=== PATIENT | female | born 1995 | race Caucasian/White ===

== ENCOUNTER 2019-12-22 16:34 | Inpatient (IN) | payer OTHER ==
[2019-12-22] MEDS ORDERED: RINGERS SOLUTION,LACTATED 1,000 ML IV PRN (17:15)
[2019-12-22] MEDS ORDERED: RINGERS SOLUTION,LACTATED 1,000 ML IV ONE (17:15)
[2019-12-22 17:44] LABS: ABSOLUTE LYMPHOCYTES (AUTO) 1.6 10^3/uL (0.5-4.7); BASOPHILS % (AUTO) 0.1 % (0-2); EOSINOPHILS % (AUTO) 0.4 % (0-6); HEMATOCRIT 33.3 % (36.0-47.0); HEMOGLOBIN 11.2 g/dL (12.0-15.5); LYMPHOCYTES % (AUTO) 14.6 % (13-45); MEAN CORPUSCULAR HEMOGLOBIN 28.1 pg (27.0-33.4); MEAN CORPUSCULAR HGB CONC 33.5 g/dL (32.0-36.0); MEAN CORPUSCULAR VOLUME 84 fl (80-97); MONOCYTES % (AUTO) 9.6 % (3-13); PLATELET COUNT 302 10^3/uL (150-450); RED BLOOD COUNT 3.97 10^6/uL (3.72-5.28); SEGMENTED NEUTROPHILS % (AUTO) 75.3 % (42-78); TOTAL CELLS COUNTED % (AUTO) 100 %; WHITE BLOOD COUNT 10.6 10^3/uL (4.0-10.5)
--- NOTE | 2019-12-22 18:43 | Admission Physical ---
Datetime Report Generated by CPN: 12/22/2019 18:43 CURRENT ADMISSION Chief Complaint: Uterine Contractions Indication for Induction: Not Applicable Admit Impression : Term, Intrauterine Admit Plan: Admit to Unit; Initiate Labor Protocol ALLERGIES Medication Allergies: No Medication Allergies: nickel (12/22/2019) Latex: No Latex Allergies OBSTETRICAL HISTORY EDC: 12/25/2019 00:00 : 1 Para: 0 Term: 0 : 0 SAB: 0 IAB: 0 Ectopic: 0 Livin Cesareans: 0 VBACs: 0 Multiple Births: 0 Gestational Diabetes: No Rh Sensitization: No Incompetent Cervix: No KARSTEN: No Infertility: No ART Treatment: No Uterine Anomaly: No IUGR: No Hx Previous C/S: No Macrosomia: No Hx Loss/Stillborn: No PIH: No Hx : No Placenta Previa/Abruption: No Depression/PP Depression: No PTL/PROM: No Post Hemorrhage: No Current Procedures: Ultrasound; NST Obstetrical History Comments: G1 - Current SEE RECORDS Alcohol: No Marijuana : No Cocaine: No Other Illicit Drugs: No Cigarettes: Never Smoker. [id number] MEDICAL HISTORY Diabetes: No Blood Transfusion: No Pulmonary Disease (Asthma, TB): No Breast Disease: No Hypertension: No Lithostripper Surgery: No Heart Disease: No Hosp/Surgery: No Autoimmune Disorder: No Anesthetic Complications: No Kidney Disease: No Abnormal Pap Smear: No Neuro/Epilepsy: No Psychiatric Disorders: No Other Medical Diseases: No Hepatitis/Liver Disease: No Significant Family History: No Varicosities/Phlebitis: No Trauma/Violence : No Thyroid Dysfunction: No INFECTIOUS HISTORY Gonorrhea: No Genital Herpes: No Chlamydia: No Tuberculosis: No Syphilis: No Hepatitis: No HIV/AIDS Exposure: No Rash or Viral Illness: No HPV: No PHYSICAL EXAM General: Normal HEENT: Normal Neurologic: Normal Thyroid: Normal Heart: Normal Lungs: Normal Breast: Deferred Back: Normal Abdomen: Normal Genitourinary Exam: Normal Extremities: Normal DTRs: Normal Pelvic Type: Adequate FETUS A EGA: 39.4 PLANS FOR LABOR AND DELIVERY Labor and Delivery: None Pain Management: Epidural Feeding Preference: Breast Benefit of Breast Feed Discussed: Yes Circumcision: N/A INFORMED CONSENT Signature: with User ID: [email or web address]
[2019-12-22] MEDS ORDERED: EPHEDRINE SULFATE INJ 50 MG/1 ML AMPULE ONE (18:55)
[2019-12-22] MEDS ORDERED: OXYTOCIN/0.9 % SODIUM CHLORIDE 30 UNIT/500 ML RTUINJ ONE (18:56)
[2019-12-22] MEDS ORDERED: MISOPROSTOL 0.2 MG TABLET ONE (18:56)
[2019-12-22] MEDS ORDERED: FENTANYL/BUPIVACAINE/NS/PF 300 MCG/150 ML RTUINJ EPI ONE (18:56)
[2019-12-22] MEDS ORDERED: LIDOCAINE 1% INJ-PF (10 MG/ML) 30 ML SDV ONE (18:56)
[2019-12-22] MEDS ORDERED: ROPIVACAINE HCL 0.2% INJ/PF (2 MG/ML) 20 ML SDV ONE (18:56)
[2019-12-22] MEDS ORDERED: OXYTOCIN 10 UNIT/ML VIAL ONE (18:56)
[2019-12-22 19:01] LABS: URINE AMPHETAMINES SCREEN NEGATIVE; URINE BARBITURATES SCREEN NEGATIVE; URINE BENZODIAZEPINES SCREEN NEGATIVE; URINE COCAINE SCREEN NEGATIVE; URINE MARIJUANA (THC) SCREEN NEGATIVE; URINE METHADONE SCREEN NEGATIVE; URINE PHENCYCLIDINE SCREEN NEGATIVE
[2019-12-22 19:07] LABS: APPEARANCE,URINE SLIGHTLY-CLOUDY; BILIRUBIN,URINE NEGATIVE (NEGATIVE); COLOR,URINE YELLOW; GLUCOSE, URINE NEGATIVE (NEGATIVE); KETONES,URINE NEGATIVE (NEGATIVE); LEUKOCYTE ESTERASE,URINE NEGATIVE (NEGATIVE); NITRITE,URINE NEGATIVE (NEGATIVE); PROTEIN,URINE 30 mg/dL (NEGATIVE); UROBILINOGEN,URINE NEGATIVE mg/dL (<2.0)
[2019-12-23] MEDS ORDERED: ONDANSETRON HCL INJ/PF 4 MG/2 ML SDV ONE (00:16)
[2019-12-23] MEDS ORDERED: ONDANSETRON HCL INJ/PF 4 MG/2 ML SDV IV ONE (00:17)
[2019-12-23] MEDS ORDERED: MAGNESIUM HYDROXIDE SUSP 30 ML UDCUP PO PRN (02:57)
[2019-12-23] MEDS ORDERED: ACETAMINOPHEN WITH CODEINE #3 TABLET PO PRN (02:57)
[2019-12-23] MEDS ORDERED: PROMETHAZINE HCL 25 MG SUPP.RECT PR PRN (02:57)
[2019-12-23] MEDS ORDERED: DIPHENHYDRAMINE HCL 25 MG CAPSULE PO PRN (02:57)
[2019-12-23] MEDS ORDERED: GLYCERIN/WITCH HAZEL LEAF 1 EACH MED..WIPE TP PRN (02:57)
[2019-12-23] MEDS ORDERED: DIPH/PERTUSS(ACELL)/TETANUS VAC/PF 0.5 ML SYR (>=10YO) IM PRN (02:57)
[2019-12-23] MEDS ORDERED: PSEUDOEPHEDRINE HCL 30 MG TABLET PO PRN (02:57)
[2019-12-23] MEDS ORDERED: ACETAMINOPHEN 650 MG SUPP.RECT PR PRN (02:57)
[2019-12-23] MEDS ORDERED: PROMETHAZINE HCL 25 MG TABLET PO PRN (02:57)
[2019-12-23] MEDS ORDERED: MEASLES,MUMPS&RUBELLA VACC/PF 0.5 ML VIAL SUBCUT PRN (02:57)
[2019-12-23] MEDS ORDERED: DIBUCAINE 1% OINTMENT 28 GM TP PRN (02:57)
[2019-12-23] MEDS ORDERED: PROMETHAZINE HCL INJ 25 MG/1 ML VIAL IV PRN (02:57)
[2019-12-23] MEDS ORDERED: OXYTOCIN/0.9 % SODIUM CHLORIDE 30 UNIT/500 ML RTUINJ IV PRN (02:57)
[2019-12-23] MEDS ORDERED: ZOLPIDEM TARTRATE 5 MG TABLET PO PRN (02:57)
[2019-12-23] MEDS ORDERED: BENZOCAINE/MENTHOL AEROSOL SPRAY 56 ML TOP PRN (02:57)
[2019-12-23] MEDS ORDERED: NA PHOS,M-B/NA PHOS,DI-BA (ADULT) 133 ML ENEMA PR PRN (02:57)
[2019-12-23] MEDS ORDERED: ACETAMINOPHEN WITH CODEINE #3 TABLET ONE (03:01)
--- NOTE | 2019-12-23 04:17 | Delivery Summary ---
Del Sum A-C Datetime Report Generated by CPN: 12/23/2019 04:17 DELIVERY PERSONNEL DELIVERY PERSONNEL: [id number] Delivery Doctor:: Herb Allen MD Labor and Delivery Nurse:: Jovana Uribe RNartificial teeth inspector Nurse:: Heather Mccray RN Senior Electronics Engineer/BRANCH OPERATIONS SPECIALIST: Criselda Marshal, ST MATERNAL INFORMATION Delivery Anesthesia: Epidural Medications After Delivery: Pitocin 30 Units in 500ml NS/D5W Delivery QBL: 100 Maternal Complications: None LABOR SUMMARY EDC: 12/25/2019 00:00 No. Babies in Womb: 1 Attempted: No Labor Anesthesia: Epidural LABOR INFORMATION Reason for Induction: Not Applicable Onset of Labor: 12/22/2019 19:30 Complete Dilatation: 12/23/2019 00:25 Oxytocin: Augmentation Group B Beta Strep: Negative Antibiotics # of Doses: n/a Steroids Given: None Reason Steroids Not Administered: Not Applicable MEMBRANES Membranes Rupture Method: Spontaneous Rupture of Membranes: 12/22/2019 15:30 Length of Rupture (hr): 11.15 Amniotic Fluid Color: Clear Amniotic Fluid Amount: Large Amniotic Fluid Odor: Normal STAGES OF LABOR Stage 1 hr: 4 Stage 1 min: 55 Stage 2 hr: 2 Stage 2 min: 14 Stage 3 hr: 0 Stage 3 min: 4 Total Time in Labor hr: 7 Total Time in Labor min: 13 VAGINAL DELIVERY Episiotomy: None Laceration #1: Perineal; Vaginal Laceration Extension #1: First Degree Laceration Repair: Yes Sponge Count Correct: Yes Sharps Count Correct: Yes CSECTION DELIVERY Primary Indication: N/A Secondary Indication: N/A CSection Incidence: N/A Labor: N/A Elective: N/A CSection Incision: N/A BABY A INFORMATION Infant Delivery Date/Time: 12/23/2019 02:39 Method of Delivery: Vaginal Nurse Controlled Delivery: No Born in Route : No : N/A Forceps: N/A Vacuum Extraction: N/A Shoulder Dystocia : No PRESENTATION/POSITION BABY A Presentation: Cephalic Cephalic Presentation: Vertex Vertex Position: Left Occipital Anterior Breech Presentation: N/A PLACENTA INFORMATION BABY A Placenta Delivery Time : 12/23/2019 02:43 Placenta Method of Delivery: Spontaneous Placenta Status: Delivered SCORES BABY A Heart Rate 1 min: >100 bpm Resp Effort 1 min: Good Cry Reflex Irritability 1 min: Cough or Sneeze or Pulls Away Muscle Tone 1 min: Active Motion Color 1 min: Blue/Pale Resuscitation Effort 1 min: Tactile Stimulation SCORE 1 MIN: 8 Heart Rate 5 min: >100 bpm Resp Effort 5 min: Good Cry Reflex Irritability 5 min: Cough or Sneeze or Pulls Away Muscle Tone 5 min: Active Motion Color 5 min: Body [place], Extremities Blue Resuscitation Effort 5 min: Tactile Stimulation SCORE 5 MIN: 9 INFANT INFORMATION BABY A Gestational Age at Delivery: 39.5 Gestational Status: Full Term- 39- 40.6 Weeks Infant Outcome : Liveborn Infant Condition : Stable Sex: Female IDENTIFICATION BABY A Infant Verification Date/Time: 12/23/2019 02:47 ID Band Number: [id number] Mother's Name Verified: Yes RN Verifying : , RN and EJairon, RN WEIGHT/LENGTH BABY A Infant Birthweight (gm): 3770 Infant Weight (lb): 8 Weight (oz): 5 Infant Length (in): 21.00 Length (cm): 53.34 CORD INFORMATION BABY A No. Cord Vessels: 3 Nuchal Cord : N/A True Knot: 1 Cord Blood Taken: Yes-For Storage (Mom's Blood type +) Infant Suction: None ASSESSMENT BABY A Complications: None Physical Findings at Delivery: Within Normal Limits Infant Respirations: Appears Normal Skin to Skin: Yes Care By: Davis Mccray, RN Transferred To: Remains with Mother BABY B INFORMATION : N/A SIGNATURES Signature: with User ID: [email or web address]
[2019-12-23] MEDS: IBUPROFEN 800 MG TABLET PO SCH ×3 (05:21→21:18)
[2019-12-23] MEDS: PRENATAL VITAMIN W DHA CAPSULE PO SCH (09:46)
[2019-12-23] MEDS: FAMOTIDINE 20 MG TABLET PO SCH ×2 (09:46→21:18)
[2019-12-23] MEDS: SENNOSIDES/DOCUSATE 8.6-50 MG 1 EACH TABLET PO SCH (09:46)
[2019-12-23] MEDS: DOCUSATE SODIUM 100 MG CAPSULE PO SCH ×2 (09:46→17:43)
[2019-12-23] MEDS: FERROUS SULFATE 325 MG TABLET PO SCH ×2 (09:46→17:43)
[2019-12-24] MEDS: IBUPROFEN 800 MG TABLET PO SCH ×3 (05:48→22:17)
[2019-12-24 07:14] LABS: HEMATOCRIT 30.2 % (36.0-47.0); HEMOGLOBIN 10.1 g/dL (12.0-15.5); MEAN CORPUSCULAR HEMOGLOBIN 28.2 pg (27.0-33.4); MEAN CORPUSCULAR HGB CONC 33.5 g/dL (32.0-36.0); MEAN CORPUSCULAR VOLUME 84 fl (80-97); PLATELET COUNT 265 10^3/uL (150-450); RED BLOOD COUNT 3.58 10^6/uL (3.72-5.28); RED CELL DISTRIBUTION WIDTH 15.6 % (11.5-14.0); WHITE BLOOD COUNT 14.7 10^3/uL (4.0-10.5)
[2019-12-24] MEDS: FERROUS SULFATE 325 MG TABLET PO SCH ×2 (09:31→17:59)
[2019-12-24] MEDS: FAMOTIDINE 20 MG TABLET PO SCH ×2 (09:31→22:17)
[2019-12-24] MEDS: PRENATAL VITAMIN W DHA CAPSULE PO SCH (09:31)
[2019-12-24] MEDS: DOCUSATE SODIUM 100 MG CAPSULE PO SCH ×2 (09:32→17:59)
[2019-12-24] MEDS: SENNOSIDES/DOCUSATE 8.6-50 MG 1 EACH TABLET PO SCH (09:32)
--- NOTE | 2019-12-24 10:10 | PDOC PROGRESS REPORT ---
Subjective-OB Progress Note for:: 12/24/19 - PP Day #1, doing well, UOB, voiding, Physical Exam (OB) Vital Signs: Temp Pulse Resp BP Pulse Ox 98.2 F 67 18 105/49 L 100 12/24/19 07:26 12/24/19 07:26 12/24/19 07:26 12/24/19 07:26 12/24/19 07:26 Intake & Output 12/23/19 12/24/19 12/25/19 06:59 06:59 06:59 Intake Total 800 500 Balance 800 500 Weight 104.8 kg - General General Appearance: Appears well, Alert - PIH/Pre-Eclampsia DTR's: 2 + Clonus: Negative Headache: Absent Epigastric Pain: No Visual Changes: No - Lochia Lochia Amount: Scant < 10 ml Lochia Color: Rubra/Red - Abdomen Description: Soft Hernia Present: No Fundal Description: Firm, Midline Fundal Height: u/u - u/2 - Respiratory Respiratory Status: No respiratory distress - Abdominal Distension: No distension Tenderness: Nontender - Genitourinary Genitourinary Note: voiding - Extremities Lower extremities: Edema - 1+ - Neurological Cognition: Normal Orientation: AAOx4 - Skin Skin Temperature: Warm Skin Moisture: Dry Objective-Diagnostic Laboratory: 12/24/19 06:29 12/24/19 06:29 WBC 14.7 H RBC 3.58 L Hgb 10.1 L Hct 30.2 L MCV 84 MCH 28.2 MCHC 33.5 RDW 15.6 H Plt Count 265 Assessment and Plan(PN) - Assessment and Plan (1) (normal spontaneous vaginal delivery) Is this a current diagnosis for this admission?: Yes (2) Normal course Is this a current diagnosis for this admission?: Yes Plan:: Routine PP orders, ambulation encouraged - Time Spent with Patient Time with patient: Less than 15 minutes Medications reviewed and adjusted accordingly: Yes - Disposition Anticipated Discharge: Home Anticipated DC Timeframe: within 24 hours
[2019-12-25] MEDS: IBUPROFEN 800 MG TABLET PO SCH (05:54)
[2019-12-25] MEDS: PRENATAL VITAMIN W DHA CAPSULE PO SCH (09:15)
[2019-12-25] MEDS: FERROUS SULFATE 325 MG TABLET PO SCH (09:15)
[2019-12-25] MEDS: FAMOTIDINE 20 MG TABLET PO SCH (09:15)
[2019-12-25] MEDS: DOCUSATE SODIUM 100 MG CAPSULE PO SCH (09:15)
[2019-12-25] MEDS: SENNOSIDES/DOCUSATE 8.6-50 MG 1 EACH TABLET PO SCH (09:15)
[2019-12-25 09:43] VITALS: BP 125/68
--- NOTE | 2019-12-25 10:00 | PDOC DISCHARGE SUMMARY ---
Impression - Admit/DC Date/PCP Admission Date/Primary Care Provider: 12/22/19 17:24 RAYMOND OSPINA MD Discharge Date: 12/25/19 - PP Day #2, pt doing well, UOB, , A+, rubella Immune - Discharge Diagnosis (1) (normal spontaneous vaginal delivery) Is this a current diagnosis for this admission?: Yes (2) Normal course Is this a current diagnosis for this admission?: Yes - Additional Information Resuscitation Status: Full Code Discharge Diet: As Tolerated, Regular Discharge Activity: Activity As Tolerated, No Lifting Over 10 Pounds, Pelvic Rest Referrals: RAYMOND OSPINA MD [Primary Care Provider] - Prescriptions: Ibuprofen [Motrin 800 mg Tablet] 800 mg PO Q8 #60 tablet Home Medications: Vits96/Iron Fum/Folic [ Tablet] 1 each PO DAILY 12/22/19 Ibuprofen [Motrin 800 mg Tablet] 800 mg PO Q8 #60 tablet 12/25/19 HPI Reason(s) for Admission: Onset of Labor Procedures: Ultrasound Intrapartum Procedure(s): Spontaneous Vaginal Delivery Complication(s): Laceration-Perineal Hospital Course Hospital Course: normal Results Laboratory Results: WBC 14.7 10^3/uL (4.0-10.5) H 12/24/19 06:29 RBC 3.58 10^6/uL (3.72-5.28) L 12/24/19 06:29 Hgb 10.1 g/dL (12.0-15.5) L 12/24/19 06:29 Hct 30.2 % (36.0-47.0) L 12/24/19 06:29 MCV 84 fl (80-97) 12/24/19 06:29 MCH 28.2 pg (27.0-33.4) 12/24/19 06:29 MCHC 33.5 g/dL (32.0-36.0) 12/24/19 06:29 RDW 15.6 % (11.5-14.0) H 12/24/19 06:29 Plt Count 265 10^3/uL (150-450) 12/24/19 06:29 Lymph % (Auto) 14.6 % (13-45) 12/22/19 17:33 Crisp % (Auto) 9.6 % (3-13) 12/22/19 17:33 Eos % (Auto) 0.4 % (0-6) 12/22/19 17:33 Baso % (Auto) 0.1 % (0-2) 12/22/19 17:33 Absolute Neuts (auto) 8.0 10^3/uL (1.7-8.2) 12/22/19 17:33 Absolute Lymphs (auto) 1.6 10^3/uL (0.5-4.7) 12/22/19 17:33 Absolute Monos (auto) 1.0 10^3/uL (0.1-1.4) 12/22/19 17:33 Absolute Eos (auto) 0.0 10^3/uL (0.0-0.6) 12/22/19 17:33 Absolute Basos (auto) 0.0 10^3/uL (0.0-0.2) 12/22/19 17:33 Seg Neutrophils % 75.3 % (42-78) 12/22/19 17:33 Urine Color YELLOW 12/22/19 16:45 Urine Appearance SLIGHTLY-CLOUDY 12/22/19 16:45 Urine pH 5.0 (5.0-9.0) 12/22/19 16:45 Ur Specific [place] 1.020 12/22/19 16:45 Urine Protein 30 mg/dL (NEGATIVE) H 12/22/19 16:45 Urine Glucose (UA) NEGATIVE mg/dL (NEGATIVE) 12/22/19 16:45 Urine Ketones NEGATIVE mg/dL (NEGATIVE) 12/22/19 16:45 Urine Blood NEGATIVE (NEGATIVE) 12/22/19 16:45 Urine Nitrite NEGATIVE (NEGATIVE) 12/22/19 16:45 Urine Bilirubin NEGATIVE (NEGATIVE) 12/22/19 16:45 Urine Urobilinogen NEGATIVE mg/dL (<2.0) 12/22/19 16:45 Ur Leukocyte Esterase NEGATIVE (NEGATIVE) 12/22/19 16:45 Urine Ascorbic Acid 40 (NEGATIVE) H 12/22/19 16:45 Urine Opiates Screen NEGATIVE 12/22/19 16:45 Urine Methadone Screen NEGATIVE 12/22/19 16:45 Ur Barbiturates Screen NEGATIVE 12/22/19 16:45 Ur Phencyclidine Scrn NEGATIVE 12/22/19 16:45 Ur Amphetamines Screen NEGATIVE 12/22/19 16:45 U Benzodiazepines Scrn NEGATIVE 12/22/19 16:45 Urine Cocaine Screen NEGATIVE 12/22/19 16:45 U Marijuana (THC) Screen NEGATIVE 12/22/19 16:45 RPR NONREACTIVE (NONREACTIVE) 12/22/19 17:33 Blood Type A POSITIVE 12/22/19 17:33 Antibody Screen NEGATIVE 12/22/19 17:33 Plan Plan of Treatment: d/c home, f/up with [facility] in 4 wks for PP check up Time Spent: Less than 30 Minutes
== END 2019-12-25 11:40 | disposition home or self-care (01) | DRG 807 ==
LOC: LC 16:34 → LR 17:24 → 2S 12-23 04:54
PROVIDERS: ADMIT Obstetrics & Gynecology Gynecology; ATTEND Obstetrics & Gynecology Gynecology
PROC: 10E0XZZ Delivery of Products of Conception, External Approach (ICD-10-PCS; principal; 2019-12-23)
PROC: 0HQ9XZZ Repair Perineum Skin, External Approach (ICD-10-PCS; 2019-12-23)
DX: O70.0 First degree perineal laceration during delivery (principal); Z37.0 Single live birth; Z3A.39 39 weeks gestation of pregnancy
CPT/HCPCS: 1967; 36415; 80307; 81005; 85025; 85027; 86592; 86850; 86900; 86901; C1758; J2405; J2590; J2795; J3010; J3490